=== PATIENT | male | born 1935 | race Hispanic/Latino ===

== ENCOUNTER 2020-01-22 15:43 | Emergency (ER) | payer BC, OTHER ==
[2020-01-22 16:46] LABS: #Eosinphils 0.1 thou/uL (0.0-0.7); #Lymphocytes 1.4 thou/uL (1.20-3.40); #Monocytes 0.8 thou/uL (0.11-0.59); #Neutrophils 10.3 thou/uL (1.40-6.50); %Basophils 0.1 % (0.0-1.0); %Lymphocytes 11.2 % (21.0-51.0); %Monocytes 6.6 % (0.0-10.0); Hemoglobin 13.4 g/dL (14.0-18.0); Mean Corpuscular HGB CONC 34.5 g/dL (32.0-36.0); Mean Corpuscular Hemoglobin 31.7 pg (27.0-31.0); Mean Corpuscular Volume 91.9 fL (78.0-98.0); Mean Platelet Volume 7.4 fL (7.4-10.4); Platelet Count 129 thou/uL (130-400); RBC Distribution Width 12.2 % (11.5-14.5); Red Blood Cell (RBC) Count 4.22 mill/uL (4.70-6.10); White Blood Cell (WBC) Count 12.7 thou/uL (4.8-10.8)
[2020-01-22] MEDS ORDERED: Ondansetron PF 4 MG/2 ML Vial ONE (16:50)
--- NOTE | 2020-01-22 16:58 | RAD ---
XR Chest 1 View Portable History: Chest pain Comparison: None. Findings: Lungs are clear. No pneumothorax. No effusion. Cardiac silhouette and mediastinal contours are within normal limits. No acute osseous abnormality. Impression: No acute intrathoracic abnormality.
[2020-01-22 17:03] LABS: ALT (SGPT) 8 U/L (8-55); AST (SGOT) 16 U/L (5-34); Albumin 4.1 g/dL (3.4-4.8); Alkaline Phosphatase 78 U/L (40-110); Anion Gap 18 mmol/L (10-20); BUN (Urea Nitrogen) 25 mg/dL (8.4-25.7); Bilirubin, Total 0.6 mg/dL (0.2-1.2); Calc. Creatinine Clearance 0 mL/min (70-130); Calcium 9.3 mg/dL (7.8-10.44); Carbon Dioxide 18 mmol/L (23-31); Chloride 109 mmol/L (98-107); Estimated GFR-MDRD 33; Globulin 2.8 g/dL (2.4-3.5); Glucose 127 mg/dL (83-110); Potassium 4.1 mmol/L (3.5-5.1); Protein, Total 6.9 g/dL (5.8-8.1); Sodium 141 mmol/L (136-145)
[2020-01-22 17:59] LABS: Bilirubin Negative (Negative); Blood, Urine Negative (Negative); Clarity Clear (Clear); Glucose, Urine (Dipstick) Normal (Negative); Ketone, Urine 20 mg/dL (Negative); Leukocyte Negative Leu/uL (Negative); Nitrite Negative (Negative); Protein, Urine (Dipstick) 10 mg/dL (Neg-Trace); Specific Gravity, Urine 1.019 (1.002-1.036); Urobilinogen Normal mg/dL (Less than 2); pH, Urine 7.5 (5.0-9.0)
== END 2020-01-22 20:46 | disposition home or self-care (01) ==
LOC: ERS 15:43
DX: R55 Syncope and collapse (principal); T50.991A Poisoning by other drugs, medicaments and biological substances, accidental (unintentional), initial encounter; I95.2 Hypotension due to drugs; I10 Essential (primary) hypertension; F17.220 Nicotine dependence, chewing tobacco, uncomplicated
CPT/HCPCS: 36415; 51701; 71045; 80053; 81003; 82550; 84484; 85025; 93005; 96374; J2405

== ENCOUNTER 2022-07-05 08:48 | Inpatient (IN) | payer MEDICARE, BC ==
[2022-07-05 09:40] LABS: #Eosinphils 0.2 thou/uL (0.0-0.7); #Lymphocytes 1.8 thou/uL (1.20-3.40); #Monocytes 0.5 thou/uL (0.11-0.59); %Basophils 0.1 % (0.0-1.0); %Eosinophils 2.8 % (0.0-10.0); %Lymphocytes 27.4 % (21.0-51.0); %Monocytes 8.1 % (0.0-10.0); %Neutrophils 61.6 % (42.0-75.0); Hemoglobin 12.5 g/dL (14.0-18.0); Mean Corpuscular HGB CONC 33.9 g/dL (32.0-36.0); Mean Corpuscular Hemoglobin 32.1 pg (27.0-31.0); Mean Corpuscular Volume 94.8 fl (78.0-98.0); Mean Platelet Volume 7.3 fL (7.4-10.4); Platelet Count 159 10x3/uL (130-400); RBC Distribution Width 12.3 % (11.5-14.5); Red Blood Cell (RBC) Count 3.88 mill/uL (4.70-6.10); White Blood Cell (WBC) Count 6.5 10x3/uL (4.8-10.8)
[2022-07-05 10:00] LABS: ALT (SGPT) 12 U/L (8-55); AST (SGOT) 15 U/L (5-34); Albumin 4.1 g/dL (3.4-4.8); Alkaline Phosphatase 74 U/L (40-110); Anion Gap 12 mmol/L (10-20); BUN (Urea Nitrogen) 15 mg/dL (8.4-25.7); Bilirubin, Total 0.5 mg/dL (0.2-1.2); Calc. Creatinine Clearance 0 mL/min (70-130); Calcium 9.5 mg/dL (7.8-10.44); Carbon Dioxide 24 mmol/L (23-31); Chloride 108 mmol/L (98-107); Estimated GFR 40; Globulin 2.8 g/dL (2.4-3.5); Glucose 118 mg/dL (83-110); Potassium 4.2 mmol/L (3.5-5.1); Protein, Total 6.9 g/dL (5.8-8.1); Sodium 140 mmol/L (136-145)
[2022-07-05] MEDS ORDERED: Nitroglycerin 0.4 MG TAB (25 Tab Bottle) SL PRN ×2 (10:50→11:35)
[2022-07-05] MEDS ORDERED: Non-Formulary Item 1 EACH (Sildenafil Citrate [Sildenafil Citrate] 100 MG Tablet) PO PRN (11:35)
[2022-07-05 11:39] LABS: Magnesium 1.5 mg/dL (1.6-2.6)
[2022-07-05 13:13] LABS: Troponin I 0.566 ng/mL (< 0.028)
[2022-07-05] MEDS ORDERED: Ondansetron ODT 4 MG TAB PO PRN (13:31)
[2022-07-05] MEDS ORDERED: Acetaminophen 325 MG TAB PO PRN (13:31)
[2022-07-05] MEDS ORDERED: Ondansetron PF 4 MG/2 ML Vial IVP PRN (13:31)
[2022-07-05] MEDS: Magnesium 2 GM/50 ML(in water) 2 GM in Premix Bag 1 BAG IVPB SCH ×2 (14:32→15:36)
[2022-07-05] MEDS: Ipratropium Bromide 0.06% Nasal Inhaler 15ml EA NARE SCH ×2 (14:32→22:03)
[2022-07-05 15:44] LABS: Troponin I 4.914 ng/mL (< 0.028)
[2022-07-05] MEDS ORDERED: Communication Order-Pharmacy FS ONE (20:13)
[2022-07-05] MEDS ORDERED: Lidocaine 2% Viscous Solution 10 ML, Aluminum & Magnesium Hydroxide 30 ML SSW SCH (20:15)
[2022-07-05] MEDS: Atorvastatin Calcium 40 MG TAB PO SCH (20:16)
[2022-07-05] MEDS: Famotidine 20 MG TAB PO SCH (20:16)
[2022-07-05] MEDS: Nitroglycerin 2% Ointment 1 INCH/1 GM Packet TOP SCH (20:36)
[2022-07-05 20:45] LABS: Hemoglobin 11.9 g/dL (14.0-18.0); Platelet Count 160 10x3/uL (130-400)
[2022-07-05] MEDS ORDERED: Atorvastatin Calcium 10 MG TAB PO SCH (21:00)
[2022-07-05] MEDS ORDERED: Communication Order-Pharmacy FS SCH (21:00)
[2022-07-05] MEDS: Sodium Chloride 0.9% 1,000 ML IV SCH (21:47)
[2022-07-05] MEDS ORDERED: Nitroglycerin 2% Ointment 1 INCH/1 GM Packet TOP SCH (22:00)
[2022-07-06 00:33] LABS: ALT (SGPT) 16 U/L (8-55); AST (SGOT) 79 U/L (5-34); Albumin 3.6 g/dL (3.4-4.8); Alkaline Phosphatase 68 U/L (40-110); Anion Gap 11 mmol/L (10-20); BUN (Urea Nitrogen) 18 mg/dL (8.4-25.7); Bilirubin, Total 0.6 mg/dL (0.2-1.2); Calc. Creatinine Clearance 27 mL/min (70-130); Calcium 9.1 mg/dL (7.8-10.44); Carbon Dioxide 25 mmol/L (23-31); Chloride 106 mmol/L (98-107); Estimated GFR 34; Globulin 2.7 g/dL (2.4-3.5); Glucose 115 mg/dL (83-110); Magnesium 2.5 mg/dL (1.6-2.6); Potassium 4.3 mmol/L (3.5-5.1); Protein, Total 6.3 g/dL (5.8-8.1); Sodium 138 mmol/L (136-145)
[2022-07-06 05:42] LABS: #Eosinphils 0.1 thou/uL (0.0-0.7); #Monocytes 0.6 thou/uL (0.11-0.59); #Neutrophils 4.2 thou/uL (1.40-6.50); %Basophils 0.3 % (0.0-1.0); %Eosinophils 2.1 % (0.0-10.0); %Lymphocytes 28.2 % (21.0-51.0); %Monocytes 8.7 % (0.0-10.0); %Neutrophils 60.7 % (42.0-75.0); Hemoglobin 12.1 g/dL (14.0-18.0); Mean Corpuscular HGB CONC 36.1 g/dL (32.0-36.0); Mean Corpuscular Hemoglobin 33.4 pg (27.0-31.0); Mean Corpuscular Volume 92.5 fl (78.0-98.0); Mean Platelet Volume 7.7 fL (7.4-10.4); Platelet Count 141 10x3/uL (130-400); RBC Distribution Width 12.4 % (11.5-14.5); Red Blood Cell (RBC) Count 3.62 mill/uL (4.70-6.10)
[2022-07-06 06:06] LABS: Anion Gap 13 mmol/L (10-20); BUN (Urea Nitrogen) 17 mg/dL (8.4-25.7); Calc. Creatinine Clearance 29 mL/min (70-130); Carbon Dioxide 23 mmol/L (23-31); Cardiac Risk 3.4 (Less than 4.5); Chloride 106 mmol/L (98-107); Cholesterol 150 mg/dl (< 200 Desired); Estimated GFR 37; Glucose 104 mg/dL (83-110); HDL Cholesterol 44 mg/dL (>60 Neg Risk); LDL Cholesterol, Calculated 84 mg/dL; Magnesium 2.3 mg/dL (1.6-2.6); Potassium 4.4 mmol/L (3.5-5.1); Sodium 138 mmol/L (136-145); Triglycerides 112 mg/dL (Less than 150)
[2022-07-06] MEDS: Loratadine 10 MG TAB PO SCH (08:31)
[2022-07-06] MEDS: Nitroglycerin 2% Ointment 1 INCH/1 GM Packet TOP SCH ×2 (08:31→20:56)
[2022-07-06] MEDS: Aspirin Chewable 81 MG TAB PO SCH (08:31)
[2022-07-06] MEDS: Famotidine 20 MG TAB PO SCH ×2 (08:31→20:55)
[2022-07-06] MEDS: Docusate 100 MG CAP PO SCH (08:31)
[2022-07-06] MEDS: Ipratropium Bromide 0.06% Nasal Inhaler 15ml EA NARE SCH ×3 (08:40→21:04)
[2022-07-06] MEDS ORDERED: Hydrochlorothiazide 25 MG TAB PO SCH (09:00)
[2022-07-06] MEDS ORDERED: Metoprolol Tartrate 50 MG TAB PO SCH (09:00)
[2022-07-06] MEDS ORDERED: Lisinopril 20 MG TAB PO SCH ×3 (09:00)
[2022-07-06] MEDS: Sodium Chloride 0.9% 1,000 ML IV SCH (17:46)
[2022-07-06] MEDS: Atorvastatin Calcium 40 MG TAB PO SCH (20:55)
[2022-07-07 04:44] LABS: #Eosinphils 0.2 thou/uL (0.0-0.7); #Lymphocytes 2.4 thou/uL (1.20-3.40); #Monocytes 0.8 thou/uL (0.11-0.59); #Neutrophils 5.1 thou/uL (1.40-6.50); %Basophils 0.2 % (0.0-1.0); %Eosinophils 2.4 % (0.0-10.0); %Lymphocytes 28.4 % (21.0-51.0); %Monocytes 9.1 % (0.0-10.0); %Neutrophils 59.9 % (42.0-75.0); Hemoglobin 12.4 g/dL (14.0-18.0); Mean Corpuscular HGB CONC 33.3 g/dL (32.0-36.0); Mean Corpuscular Hemoglobin 31.2 pg (27.0-31.0); Mean Corpuscular Volume 93.8 fl (78.0-98.0); Mean Platelet Volume 7.5 fL (7.4-10.4); Platelet Count 155 10x3/uL (130-400); RBC Distribution Width 12.3 % (11.5-14.5); Red Blood Cell (RBC) Count 3.96 mill/uL (4.70-6.10); White Blood Cell (WBC) Count 8.5 10x3/uL (4.8-10.8)
[2022-07-07 05:20] LABS: Anion Gap 11 mmol/L (10-20); BUN (Urea Nitrogen) 21 mg/dL (8.4-25.7); Calc. Creatinine Clearance 26 mL/min (70-130); Calcium 9.5 mg/dL (7.8-10.44); Carbon Dioxide 26 mmol/L (23-31); Chloride 107 mmol/L (98-107); Estimated GFR 33; Glucose 97 mg/dL (83-110); Potassium 4.5 mmol/L (3.5-5.1); Sodium 139 mmol/L (136-145)
[2022-07-07] MEDS ORDERED: Sodium Chloride 0.9% 1,000 ML IV SCH ×3 (06:00→16:00)
[2022-07-07] MEDS: Famotidine 20 MG TAB PO SCH (06:12)
[2022-07-07] MEDS: Aspirin Chewable 81 MG TAB PO SCH (06:13)
[2022-07-07] MEDS: Loratadine 10 MG TAB PO SCH (06:13)
[2022-07-07] MEDS ORDERED: Heparin 10,000 UNITS/ 10 ML VIAL ONE (07:03)
[2022-07-07] MEDS ORDERED: Lidocaine 1% (PF) 30 ML VIAL ONE (07:03)
[2022-07-07] MEDS ORDERED: Midazolam HCl 2 mg/2 ml Vial ONE (08:50)
[2022-07-07] MEDS ORDERED: FENTANYL 50 MCG/ML 1 ML VIAL ONE (08:50)
[2022-07-07] MEDS ORDERED: Protamine Sulfate 50 MG/5 ML VIAL ONE (08:55)
[2022-07-07] MEDS ORDERED: Acetaminophen/Codeine 30-300mg Tablet PO PRN ×2 (09:43)
[2022-07-07] MEDS ORDERED: Nitroglycerin 0.4 MG TAB (25 Tab Bottle) SL PRN (09:43)
[2022-07-07] MEDS ORDERED: Sodium Chloride 0.9% 200 ML IV PRN (09:43)
[2022-07-07] MEDS ORDERED: Iopamidol 370 76% 100 ML VIAL ONE (09:57)
[2022-07-07] MEDS: Ipratropium Bromide 0.06% Nasal Inhaler 15ml EA NARE SCH ×2 (12:16→19:59)
[2022-07-07] MEDS: Nitroglycerin 2% Ointment 1 INCH/1 GM Packet TOP SCH ×2 (12:41→21:52)
[2022-07-07] MEDS: Docusate 100 MG CAP PO SCH (14:39)
[2022-07-07] MEDS ORDERED: Communication Order-Pharmacy FS SCH (16:03)
[2022-07-07] MEDS: Atorvastatin Calcium 40 MG TAB PO SCH (21:39)
[2022-07-08 04:47] LABS: #Basophils 0.1 thou/uL (0.0-0.2); #Eosinphils 0.2 thou/uL (0.0-0.7); #Lymphocytes 1.8 thou/uL (1.20-3.40); #Monocytes 0.7 thou/uL (0.11-0.59); #Neutrophils 3.7 thou/uL (1.40-6.50); %Basophils 1.4 % (0.0-1.0); %Eosinophils 2.4 % (0.0-10.0); %Lymphocytes 28.4 % (21.0-51.0); %Monocytes 10.2 % (0.0-10.0); %Neutrophils 57.6 % (42.0-75.0); Hemoglobin 11.9 g/dL (14.0-18.0); Mean Corpuscular HGB CONC 33.6 g/dL (32.0-36.0); Mean Corpuscular Hemoglobin 32.2 pg (27.0-31.0); Mean Corpuscular Volume 95.7 fl (78.0-98.0); Mean Platelet Volume 7.5 fL (7.4-10.4); Platelet Count 154 10x3/uL (130-400); RBC Distribution Width 12.4 % (11.5-14.5); Red Blood Cell (RBC) Count 3.69 mill/uL (4.70-6.10); White Blood Cell (WBC) Count 6.4 10x3/uL (4.8-10.8)
[2022-07-08 05:21] LABS: Anion Gap 12 mmol/L (10-20); BUN (Urea Nitrogen) 17 mg/dL (8.4-25.7); Calc. Creatinine Clearance 31 mL/min (70-130); Calcium 9.1 mg/dL (7.8-10.44); Carbon Dioxide 22 mmol/L (23-31); Chloride 110 mmol/L (98-107); Estimated GFR 40; Glucose 107 mg/dL (83-110); Potassium 4.5 mmol/L (3.5-5.1); Sodium 139 mmol/L (136-145)
[2022-07-08] MEDS ORDERED: Albumin 5% 500 ML ONE ×2 (06:47→12:34)
[2022-07-08] MEDS ORDERED: Levofloxacin 500 mg/D5W 100 ml Premix Bag ONE (08:22)
[2022-07-08] MEDS ORDERED: Clindamycin/D5W 900 mg/50 ml Premix Bag ONE (08:22)
[2022-07-08] MEDS ORDERED: Midazolam HCl 5 mg/5 ml Vial ONE (08:26)
[2022-07-08] MEDS ORDERED: Rocuronium Bromide 50 MG/5 ML VIAL ONE (08:26)
[2022-07-08] MEDS ORDERED: Fentanyl 250 MCG/5 ML VIAL ONE (08:26)
[2022-07-08] MEDS ORDERED: Insulin Regular 300 UNITS/3 ML VIAL ONE (08:26)
[2022-07-08] MEDS ORDERED: SUGAMMADEX SODIUM 200 MG/2 ML VIAL ONE (08:26)
[2022-07-08] MEDS ORDERED: Heparin 10,000 UNITS/1 ML VIAL 30,000 UNITS in Sodium Chloride 0.9% 1,000 ML FS SCH (08:45)
[2022-07-08] MEDS ORDERED: Aminocaproic Acid 5 GM/20 ML VIAL ONE ×2 (08:52→09:37)
[2022-07-08] MEDS ORDERED: Famotidine 20 MG TAB PO SCH (09:00)
[2022-07-08] MEDS ORDERED: Lisinopril 20 MG TAB PO SCH (09:00)
[2022-07-08] MEDS ORDERED: Lidocaine 1% MPF 2 ML VIAL ONE (09:07)
[2022-07-08] MEDS ORDERED: Cardioplegic Soln 1,000 ML BAG ONE (09:37)
[2022-07-08] MEDS ORDERED: Calcium Chloride 1 GM/10 ML Abboject SYRINGE ONE (09:37)
[2022-07-08] MEDS ORDERED: Thrombin 5000 UNITS/5 ML VIAL ONE (09:37)
[2022-07-08] MEDS ORDERED: Phenylephrine 10 MG/ML VIAL ONE (09:37)
[2022-07-08] MEDS ORDERED: Heparin 5,000 UNITS/ML VIAL ONE (09:37)
[2022-07-08] MEDS ORDERED: Papaverine 60 MG/2 ML VIAL ONE (09:37)
[2022-07-08] MEDS ORDERED: PROPOFOL 200 MG/20 ML VIAL ONE (09:37)
[2022-07-08] MEDS ORDERED: Vancomycin 1 GM VIAL ONE (09:37)
[2022-07-08] MEDS ORDERED: ePHEDrine 50 MG/ML VIAL ONE (09:37)
[2022-07-08] MEDS ORDERED: Rocuronium Bromide 10 MG/ML (10ML VIAL) ONE (09:37)
[2022-07-08] MEDS ORDERED: Magnesium 5 GM/10 ML VIAL ONE (09:37)
[2022-07-08] MEDS ORDERED: Potassium Chloride 60 MEQ/30 ML VIAL ONE (09:37)
[2022-07-08] MEDS ORDERED: Mannitol 12.5 GM/50 ML ONE (09:37)
[2022-07-08] MEDS ORDERED: Lidocaine 2% PF 100 mg/5 ml Syringe ONE (09:37)
[2022-07-08] MEDS ORDERED: Lidocaine 1% PF 5 ML VIAL ONE (09:37)
[2022-07-08] MEDS ORDERED: Sodium Bicarb 50 MEQ/50 ML VIAL ONE (09:37)
[2022-07-08] MEDS ORDERED: Protamine Sulfate 250 MG/25 ML VIAL ONE (09:37)
[2022-07-08] MEDS ORDERED: Norepinephrine 4 MG/4 ML VIAL ONE (09:37)
[2022-07-08] MEDS ORDERED: Heparin 30,000 units/30 ml VIAL ONE (09:37)
[2022-07-08] MEDS ORDERED: PHENYLEPHRINE-NS 100 MCG/ML 10 ML SYRINGE ONE (11:19)
[2022-07-08] MEDS ORDERED: Potassium Chloride 20 MEQ/100 ML PREMIX BAG IVPB PRN (13:42)
[2022-07-08] MEDS ORDERED: niCARdipine 25 MG in Sodium Chloride 0.9% 250 ML 250 ML IVPB PRN (13:42)
[2022-07-08] MEDS ORDERED: Nitroglycerin 50 MG/250 ML BOT 250 ML IVPB PRN (13:42)
[2022-07-08] MEDS ORDERED: Mag-Al 1200 mg/1200 mg/30 ML UDCUP PO PRN (13:42)
[2022-07-08] MEDS ORDERED: DOPamine 400 MG/D5W 250 ML 250 ML IVPB PRN (13:42)
[2022-07-08] MEDS ORDERED: Ipratropium/Albuterol 3 ML NEB NEB PRN (13:42)
[2022-07-08] MEDS ORDERED: Hetastarch 6% 500 ML 500 ML IVPB PRN (13:42)
[2022-07-08] MEDS ORDERED: hydrALAZINE 20 MG/ML VIAL SLOW IVP PRN (13:42)
[2022-07-08] MEDS ORDERED: Bisacodyl 10 MG SUPP PR PRN (13:42)
[2022-07-08] MEDS ORDERED: Post-Op Insulin Drip Protocol IVPB ONE (13:42)
[2022-07-08] MEDS ORDERED: NOREPINEPHRINE 8 MG/250 ML-D5W 250 ML IVPB PRN (13:42)
[2022-07-08] MEDS ORDERED: Dextrose 5% in Water 1,000 ML IV PRN (14:00)
[2022-07-08] MEDS ORDERED: Dextrose 50% Abboject 50 ML SYRINGE SLOW IVP PRN (14:00)
[2022-07-08] MEDS ORDERED: HUMULIN R 100 UNITS in Sodium Chloride 0.9% 100 ML IVPB SCH (14:00)
[2022-07-08 14:22] LABS: INR-International Normal Ratio 1.5; Prothrombin Time 19.1 sec (12.0-14.7)
[2022-07-08] MEDS: Morphine 2 MG/ML VIAL SLOW IVP PRN ×2 (14:22→14:59)
[2022-07-08 14:23] LABS: PTT 33.9 sec (22.9-36.1)
[2022-07-08] MEDS: Insulin Regular 300 UNITS/3 ML VIAL SC PRN ×3 (14:23→20:09)
[2022-07-08 14:26] LABS: Actual Bicarbonate (HCO3a) 20.2 mEq/L (22-28); Base Excess (BEa) -3.4 mEq/L (-2.0 to +3.0); CO2 Tension 31.7 mmHg (35.0-45.0); Calcium, Ionized (arterial) 1.05 mmol/L (1.12-1.30); Carboxyhemoglobin (COHb) 0.4 gm% (0.0-3.0); Hemoglobin (Hb) 11.8 g/dL (14.0-18.0); O2 Tension (PaO2), arterial 106.7 mmHg (> 60.0); Potassium - ABG Lab 4.58 mmol/L (3.70-5.30); pH, Arterial 7.42 (7.35-7.45)
[2022-07-08 14:32] LABS: #Eosinphils 0.1 thou/uL (0.0-0.7); #Lymphocytes 0.8 thou/uL (1.20-3.40); #Monocytes 0.5 thou/uL (0.11-0.59); #Neutrophils 5.7 thou/uL (1.40-6.50); %Eosinophils 1.4 % (0.0-10.0); %Lymphocytes 10.7 % (21.0-51.0); %Monocytes 6.6 % (0.0-10.0); %Neutrophils 81.2 % (42.0-75.0); Hemoglobin 11.6 g/dL (14.0-18.0); Mean Corpuscular HGB CONC 34.6 g/dL (32.0-36.0); Mean Corpuscular Hemoglobin 32.3 pg (27.0-31.0); Mean Corpuscular Volume 93.1 fl (78.0-98.0); Mean Platelet Volume 7.8 fL (7.4-10.4); Platelet Count 65 10x3/uL (130-400); RBC Distribution Width 12.1 % (11.5-14.5); Red Blood Cell (RBC) Count 3.59 mill/uL (4.70-6.10)
[2022-07-08 14:32] LABS: Puncture Site Arterial Line
[2022-07-08 14:33] LABS: ALV-art Gradient 210.175 mmHg (0-20)
[2022-07-08 14:48] LABS: Anion Gap 12 mmol/L (10-20); BUN (Urea Nitrogen) 15 mg/dL (8.4-25.7); Calc. Creatinine Clearance 40 mL/min (70-130); Calcium 7.6 mg/dL (7.8-10.44); Carbon Dioxide 20 mmol/L (23-31); Chloride 113 mmol/L (98-107); Estimated GFR 52; Glucose 132 mg/dL (83-110); Potassium 4.8 mmol/L (3.5-5.1); Sodium 140 mmol/L (136-145)
[2022-07-08] MEDS: Lactated Ringer's 1,000 ML IV SCH (14:48)
[2022-07-08] MEDS: Clindamycin/D5W 900 MG in Premix Bag 1 BAG IVPB SCH (16:54)
[2022-07-08] MEDS: Famotidine/PF 20 mg/2ml Vial SLOW IVP SCH (20:02)
[2022-07-08 20:31] LABS: Actual Bicarbonate (HCO3a) 20.4 mEq/L (22-28); Base Excess (BEa) -3.5 mEq/L (-2.0 to +3.0); Calcium, Ionized (arterial) 1.04 mmol/L (1.12-1.30); Carboxyhemoglobin (COHb) 1.1 gm% (0.0-3.0); Hemoglobin (Hb) 10.9 g/dL (14.0-18.0); O2 Tension (PaO2), arterial 111.6 mmHg (> 60.0); Potassium - ABG Lab 4.43 mmol/L (3.70-5.30); pH, Arterial 7.41 (7.35-7.45)
[2022-07-08 20:33] LABS: Puncture Site ART LINE
[2022-07-08] MEDS: FENTANYL 50 MCG/ML 1 ML VIAL SLOW IVP PRN ×2 (20:49→22:43)
[2022-07-08 21:04] LABS: Hemoglobin 10.5 g/dL (14.0-18.0)
[2022-07-08] MEDS: Ondansetron PF 4 MG/2 ML Vial IVP PRN (21:18)
[2022-07-08 21:22] LABS: Potassium 4.4 mmol/L (3.5-5.1)
[2022-07-09] MEDS: Lactated Ringer's 1,000 ML IV SCH ×4 (00:30→23:49)
[2022-07-09] MEDS: Clindamycin/D5W 900 MG in Premix Bag 1 BAG IVPB SCH ×2 (00:33→08:16)
[2022-07-09] MEDS: FENTANYL 50 MCG/ML 1 ML VIAL SLOW IVP PRN ×6 (00:33→20:28)
[2022-07-09] MEDS: Insulin Regular 300 UNITS/3 ML VIAL SC PRN ×3 (00:58→12:38)
[2022-07-09] MEDS: Ondansetron PF 4 MG/2 ML Vial IVP PRN (03:16)
[2022-07-09 05:21] LABS: #Lymphocytes 0.6 thou/uL (1.20-3.40); #Monocytes 0.8 thou/uL (0.11-0.59); #Neutrophils 6.9 thou/uL (1.40-6.50); %Eosinophils 0.1 % (0.0-10.0); %Lymphocytes 7.6 % (21.0-51.0); %Monocytes 9.4 % (0.0-10.0); %Neutrophils 82.8 % (42.0-75.0); Hemoglobin 10.4 g/dL (14.0-18.0); Mean Corpuscular HGB CONC 33.5 g/dL (32.0-36.0); Mean Corpuscular Hemoglobin 31.9 pg (27.0-31.0); Mean Corpuscular Volume 95.1 fl (78.0-98.0); Mean Platelet Volume 7.9 fL (7.4-10.4); Platelet Count 95 10x3/uL (130-400); RBC Distribution Width 12.3 % (11.5-14.5); Red Blood Cell (RBC) Count 3.25 mill/uL (4.70-6.10); White Blood Cell (WBC) Count 8.4 10x3/uL (4.8-10.8)
[2022-07-09 05:25] LABS: Anion Gap 11 mmol/L (10-20); BUN (Urea Nitrogen) 21 mg/dL (8.4-25.7); Calc. Creatinine Clearance 34 mL/min (70-130); Calcium 8.1 mg/dL (7.8-10.44); Carbon Dioxide 23 mmol/L (23-31); Chloride 112 mmol/L (98-107); Estimated GFR 43; Glucose 139 mg/dL (83-110); Potassium 4.4 mmol/L (3.5-5.1); Sodium 142 mmol/L (136-145)
[2022-07-09] MEDS: Aspirin Chewable 81 MG TAB PO SCH (08:15)
[2022-07-09] MEDS: Magnesium 2 GM/50 ML(in water) 2 GM in Premix Bag 1 BAG IVPB SCH (08:16)
[2022-07-09] MEDS: Polyethylene Glycol 3350 17 GM Packet PO SCH (08:16)
[2022-07-09] MEDS: traMADol HCl 50 MG TAB PO PRN ×2 (11:19→17:19)
[2022-07-09] MEDS ORDERED: Insulin Glargine 30 UNITS/0.3 ML VIAL SC PRN (14:00)
[2022-07-09] MEDS: Acetaminophen 325 MG TAB PO PRN ×2 (14:08→19:48)
[2022-07-09] MEDS ORDERED: Simethicone Chewable 80 MG TAB PO SCH (15:00)
[2022-07-09 15:10] LABS: Actual Bicarbonate (HCO3a) 18.9 mEq/L (22-28); Analyzer IN Cardio OR; Base Excess (BEa) -5.4 mEq/L (-2.0 to +3.0); CO2 Tension 32.9 mmHg (35.0-45.0); Calcium, Ionized (arterial) 1.14 mmol/L (1.12-1.30); Carboxyhemoglobin (COHb) 0.3 gm% (0.0-3.0); Hemoglobin (Hb) 11.6 g/dL (14.0-18.0); O2 Tension (PaO2), arterial 423.3 mmHg (> 60.0); Potassium - ABG Lab 4.08 mmol/L (3.70-5.30); pH, Arterial 7.38 (7.35-7.45)
[2022-07-09 15:10] LABS: Analyzer IN Cardio OR; Base Excess (BEa) -4.9 mEq/L (-2.0 to +3.0); CO2 Tension 36.7 mmHg (35.0-45.0); Calcium, Ionized (arterial) 1.08 mmol/L (1.12-1.30); Carboxyhemoglobin (COHb) 0.2 gm% (0.0-3.0); Hemoglobin (Hb) 10.4 g/dL (14.0-18.0); O2 Tension (PaO2), arterial 490.3 mmHg (> 60.0); Potassium - ABG Lab 4.17 mmol/L (3.70-5.30); pH, Arterial 7.36 (7.35-7.45)
[2022-07-09 15:11] LABS: Actual Bicarbonate (HCO3a) 19.6 mEq/L (22-28); Analyzer IN Cardio OR; Base Excess (BEa) -3.3 mEq/L (-2.0 to +3.0); CO2 Tension 26.6 mmHg (35.0-45.0); Calcium, Ionized (arterial) 0.98 mmol/L (1.12-1.30); Carboxyhemoglobin (COHb) 0.4 gm% (0.0-3.0); Hemoglobin (Hb) 7.4 g/dL (14.0-18.0); O2 Tension (PaO2), arterial 511.5 mmHg (> 60.0); pH, Arterial 7.49 (7.35-7.45)
[2022-07-09 15:11] LABS: Actual Bicarbonate (HCO3a) 24.8 mEq/L (22-28); Analyzer IN Cardio OR; Base Excess (BEa) 0.7 mEq/L (-2.0 to +3.0); CO2 Tension 36.8 mmHg (35.0-45.0); Calcium, Ionized (arterial) 0.96 mmol/L (1.12-1.30); Carboxyhemoglobin (COHb) 0.6 gm% (0.0-3.0); Hemoglobin (Hb) 6.9 g/dL (14.0-18.0); O2 Tension (PaO2), arterial 428.2 mmHg (> 60.0); Potassium - ABG Lab 5.48 mmol/L (3.70-5.30); pH, Arterial 7.45 (7.35-7.45)
[2022-07-09 15:11] LABS: Actual Bicarbonate (HCO3a) 21.9 mEq/L (22-28); Analyzer IN Cardio OR; Base Excess (BEa) -2.6 mEq/L (-2.0 to +3.0); CO2 Tension 36.7 mmHg (35.0-45.0); Calcium, Ionized (arterial) 0.98 mmol/L (1.12-1.30); Carboxyhemoglobin (COHb) 0.3 gm% (0.0-3.0); Hemoglobin (Hb) 9.1 g/dL (14.0-18.0); O2 Tension (PaO2), arterial 413.4 mmHg (> 60.0); Potassium - ABG Lab 5.74 mmol/L (3.70-5.30); pH, Arterial 7.39 (7.35-7.45)
[2022-07-09 15:11] LABS: Actual Bicarbonate (HCO3a) 19.5 mEq/L (22-28); Analyzer IN Cardio OR; Base Excess (BEa) -3.8 mEq/L (-2.0 to +3.0); CO2 Tension 29.6 mmHg (35.0-45.0); Calcium, Ionized (arterial) 1.02 mmol/L (1.12-1.30); Carboxyhemoglobin (COHb) 0.3 gm% (0.0-3.0); Hemoglobin (Hb) 10.5 g/dL (14.0-18.0); O2 Tension (PaO2), arterial 480.9 mmHg (> 60.0); Potassium - ABG Lab 4.96 mmol/L (3.70-5.30); pH, Arterial 7.44 (7.35-7.45)
[2022-07-09 15:12] LABS: Puncture Site Arterial Line
[2022-07-09 15:12] LABS: Puncture Site Arterial Line
[2022-07-09 15:13] LABS: Puncture Site Arterial Line
[2022-07-09 15:13] LABS: Puncture Site Arterial Line
[2022-07-09 15:13] LABS: Puncture Site Arterial Line
[2022-07-09 15:14] LABS: Puncture Site Arterial Line
[2022-07-09] MEDS: Famotidine/PF 20 mg/2ml Vial SLOW IVP SCH (20:29)
[2022-07-09] MEDS: Atorvastatin Calcium 40 MG TAB PO SCH (20:29)
[2022-07-09] MEDS: Simethicone Chewable 80 MG TAB PO PRN (23:48)
[2022-07-10] MEDS: Dicyclomine 10 MG CAP PO PRN ×3 (02:03→20:56)
[2022-07-10] MEDS: Acetaminophen 325 MG TAB PO PRN (02:06)
[2022-07-10 04:37] LABS: #Eosinphils 0.1 thou/uL (0.0-0.7); #Monocytes 0.9 thou/uL (0.11-0.59); #Neutrophils 6.7 thou/uL (1.40-6.50); %Basophils 0.1 % (0.0-1.0); %Eosinophils 0.8 % (0.0-10.0); %Monocytes 10.9 % (0.0-10.0); %Neutrophils 77.3 % (42.0-75.0); Hemoglobin 9.1 g/dL (14.0-18.0); Mean Corpuscular HGB CONC 33.9 g/dL (32.0-36.0); Mean Corpuscular Hemoglobin 32.2 pg (27.0-31.0); Mean Corpuscular Volume 94.9 fl (78.0-98.0); Mean Platelet Volume 7.8 fL (7.4-10.4); Platelet Count 84 10x3/uL (130-400); RBC Distribution Width 12.7 % (11.5-14.5); Red Blood Cell (RBC) Count 2.82 mill/uL (4.70-6.10); White Blood Cell (WBC) Count 8.7 10x3/uL (4.8-10.8)
[2022-07-10 04:54] LABS: Anion Gap 9 mmol/L (10-20); BUN (Urea Nitrogen) 19 mg/dL (8.4-25.7); Calc. Creatinine Clearance 36 mL/min (70-130); Calcium 8.2 mg/dL (7.8-10.44); Carbon Dioxide 24 mmol/L (23-31); Chloride 109 mmol/L (98-107); Estimated GFR 44; Glucose 116 mg/dL (83-110); Potassium 4.1 mmol/L (3.5-5.1); Sodium 138 mmol/L (136-145)
[2022-07-10] MEDS: traMADol HCl 50 MG TAB PO PRN ×2 (06:28→18:08)
[2022-07-10] MEDS: Lactated Ringer's 1,000 ML IV SCH ×2 (06:31→18:39)
[2022-07-10] MEDS ORDERED: Fleet Enema 133 ML BOT PR SCH (08:30)
[2022-07-10] MEDS: Polyethylene Glycol 3350 17 GM Packet PO SCH (08:35)
[2022-07-10] MEDS: Aspirin Chewable 81 MG TAB PO SCH (08:35)
[2022-07-10] MEDS: Magnesium 2 GM/50 ML(in water) 2 GM in Premix Bag 1 BAG IVPB SCH (08:36)
[2022-07-10] MEDS: Simethicone Chewable 80 MG TAB PO PRN ×2 (08:36→22:36)
[2022-07-10] MEDS: Bisacodyl 10 MG SUPP PR SCH (09:08)
[2022-07-10] MEDS: Bisacodyl 5 MG TAB PO PRN (18:08)
[2022-07-10] MEDS: Atorvastatin Calcium 40 MG TAB PO SCH (20:55)
[2022-07-10] MEDS: Famotidine/PF 20 mg/2ml Vial SLOW IVP SCH (20:55)
[2022-07-11] MEDS: traMADol HCl 50 MG TAB PO PRN (00:14)
[2022-07-11] MEDS: Lactated Ringer's 1,000 ML IV SCH ×3 (02:08→23:18)
[2022-07-11] MEDS: Dicyclomine 10 MG CAP PO PRN (04:17)
[2022-07-11 04:39] LABS: #Lymphocytes 0.9 thou/uL (1.20-3.40); #Monocytes 0.9 thou/uL (0.11-0.59); %Basophils 0.1 % (0.0-1.0); %Eosinophils 0.4 % (0.0-10.0); %Lymphocytes 8.6 % (21.0-51.0); %Monocytes 9.4 % (0.0-10.0); %Neutrophils 81.4 % (42.0-75.0); Hemoglobin 9.5 g/dL (14.0-18.0); Mean Corpuscular HGB CONC 34.2 g/dL (32.0-36.0); Mean Corpuscular Hemoglobin 32.5 pg (27.0-31.0); Mean Corpuscular Volume 95.2 fl (78.0-98.0); Mean Platelet Volume 7.8 fL (7.4-10.4); Platelet Count 105 10x3/uL (130-400); RBC Distribution Width 12.6 % (11.5-14.5); Red Blood Cell (RBC) Count 2.91 mill/uL (4.70-6.10); White Blood Cell (WBC) Count 9.9 10x3/uL (4.8-10.8)
[2022-07-11 04:58] LABS: Anion Gap 12 mmol/L (10-20); BUN (Urea Nitrogen) 17 mg/dL (8.4-25.7); Calc. Creatinine Clearance 42 mL/min (70-130); Calcium 8.3 mg/dL (7.8-10.44); Carbon Dioxide 23 mmol/L (23-31); Chloride 106 mmol/L (98-107); Estimated GFR 53; Glucose 118 mg/dL (83-110); Potassium 3.8 mmol/L (3.5-5.1); Sodium 137 mmol/L (136-145)
[2022-07-11] MEDS ORDERED: Fleet Enema 133 ML BOT PR SCH (07:00)
[2022-07-11] MEDS: Polyethylene Glycol 3350 17 GM Packet PO SCH (07:33)
[2022-07-11] MEDS: Bisacodyl 5 MG TAB PO PRN (07:34)
[2022-07-11] MEDS: Aspirin Chewable 81 MG TAB PO SCH (07:35)
[2022-07-11] MEDS: Bisacodyl 10 MG SUPP PR SCH (07:35)
[2022-07-11] MEDS: Acetaminophen 325 MG TAB PO PRN (07:39)
[2022-07-11] MEDS: Atorvastatin Calcium 40 MG TAB PO SCH (20:11)
[2022-07-11] MEDS: Famotidine 20 MG TAB PO SCH (20:11)
[2022-07-11] MEDS: Metoprolol Tartrate 25 MG TAB PO SCH (20:12)
[2022-07-11] MEDS: Senokot S 8.6-50 MG TAB PO SCH (20:12)
[2022-07-12] MEDS ORDERED: Nitroglycerin 0.4 MG TAB (25 Tab Bottle) SL PRN (00:21)
[2022-07-12] MEDS ORDERED: Furosemide 20 MG TAB PO SCH (00:21)
[2022-07-12] MEDS: Acetaminophen 325 MG TAB PO PRN (01:41)
[2022-07-12] MEDS ORDERED: Morphine 2 MG/ML VIAL SLOW IVP PRN ×2 (04:18→09:49)
[2022-07-12] MEDS: Guaifenesin DM 100-10/5 ML UDCUP PO PRN (06:30)
[2022-07-12 08:14] LABS: #Eosinphils 0.2 thou/uL (0.0-0.7); #Lymphocytes 1.2 thou/uL (1.20-3.40); #Neutrophils 7.2 thou/uL (1.40-6.50); %Basophils 0.1 % (0.0-1.0); %Eosinophils 1.8 % (0.0-10.0); %Lymphocytes 12.4 % (21.0-51.0); %Monocytes 10.5 % (0.0-10.0); %Neutrophils 75.2 % (42.0-75.0); Hemoglobin 9.3 g/dL (14.0-18.0); Mean Corpuscular HGB CONC 33.7 g/dL (32.0-36.0); Mean Corpuscular Hemoglobin 32.2 pg (27.0-31.0); Mean Corpuscular Volume 95.5 fl (78.0-98.0); Mean Platelet Volume 7.8 fL (7.4-10.4); Platelet Count 148 10x3/uL (130-400); RBC Distribution Width 12.5 % (11.5-14.5); Red Blood Cell (RBC) Count 2.88 mill/uL (4.70-6.10); White Blood Cell (WBC) Count 9.5 10x3/uL (4.8-10.8)
[2022-07-12 08:23] LABS: Anion Gap 12 mmol/L (10-20); BUN (Urea Nitrogen) 20 mg/dL (8.4-25.7); Calc. Creatinine Clearance 36 mL/min (70-130); Calcium 8.7 mg/dL (7.8-10.44); Carbon Dioxide 24 mmol/L (23-31); Chloride 106 mmol/L (98-107); Estimated GFR 43; Glucose 119 mg/dL (83-110); Potassium 3.8 mmol/L (3.5-5.1); Sodium 138 mmol/L (136-145)
[2022-07-12] MEDS: Metoprolol Tartrate 25 MG TAB PO SCH ×2 (09:16→21:28)
[2022-07-12] MEDS: traMADol HCl 50 MG TAB PO PRN ×2 (09:16→21:26)
[2022-07-12] MEDS: Aspirin Chewable 81 MG TAB PO SCH (09:16)
[2022-07-12] MEDS: Potassium Chloride 10 MEQ TAB PO SCH (09:16)
[2022-07-12] MEDS: Senokot S 8.6-50 MG TAB PO SCH ×2 (09:16→21:26)
[2022-07-12] MEDS: Bisacodyl 10 MG SUPP PR SCH (09:16)
[2022-07-12] MEDS: Polyethylene Glycol 3350 17 GM Packet PO SCH (09:17)
[2022-07-12] MEDS: Furosemide 20 MG TAB PO SCH ×2 (09:17→13:31)
[2022-07-12] MEDS: Amiodarone 450 MG, Admixture Fee 1 EACH in Dextrose 5% in Water 250 ML IVPB SCH ×2 (11:14→21:28)
[2022-07-12] MEDS: Atorvastatin Calcium 40 MG TAB PO SCH (21:26)
[2022-07-12] MEDS: Famotidine 20 MG TAB PO SCH (21:26)
[2022-07-13] MEDS: Aspirin Chewable 81 MG TAB PO SCH (08:28)
[2022-07-13] MEDS: Metoprolol Tartrate 25 MG TAB PO SCH (08:28)
[2022-07-13] MEDS: Senokot S 8.6-50 MG TAB PO SCH ×2 (08:28→20:52)
[2022-07-13] MEDS: Furosemide 20 MG TAB PO SCH (08:28)
[2022-07-13] MEDS: Potassium Chloride 10 MEQ TAB PO SCH (08:28)
[2022-07-13] MEDS: Polyethylene Glycol 3350 17 GM Packet PO SCH (08:28)
[2022-07-13] MEDS: Bisacodyl 10 MG SUPP PR SCH (08:29)
[2022-07-13] MEDS: traMADol HCl 50 MG TAB PO PRN ×2 (08:33→20:51)
[2022-07-13] MEDS: Amiodarone 450 MG, Admixture Fee 1 EACH in Dextrose 5% in Water 250 ML IVPB SCH (12:11)
[2022-07-13] MEDS: Atorvastatin Calcium 40 MG TAB PO SCH (20:52)
[2022-07-13] MEDS: Famotidine 20 MG TAB PO SCH (20:52)
[2022-07-13] MEDS: Metoprolol Tartrate 50 MG TAB PO SCH (20:52)
[2022-07-14 05:19] LABS: Anion Gap 13 mmol/L (10-20); BUN (Urea Nitrogen) 30 mg/dL (8.4-25.7); Calc. Creatinine Clearance 30 mL/min (70-130); Carbon Dioxide 25 mmol/L (23-31); Chloride 104 mmol/L (98-107); Estimated GFR 36; Glucose 115 mg/dL (83-110); Magnesium 1.8 mg/dL (1.6-2.6); Potassium 4.3 mmol/L (3.5-5.1); Sodium 138 mmol/L (136-145)
[2022-07-14] MEDS ORDERED: Furosemide 20 MG TAB PO SCH (09:00)
[2022-07-14] MEDS: Senokot S 8.6-50 MG TAB PO SCH ×2 (10:07→21:51)
[2022-07-14] MEDS: Polyethylene Glycol 3350 17 GM Packet PO SCH (10:07)
[2022-07-14] MEDS: Metoprolol Tartrate 50 MG TAB PO SCH ×2 (10:08→21:51)
[2022-07-14] MEDS: Bisacodyl 10 MG SUPP PR SCH (10:08)
[2022-07-14] MEDS: Aspirin Chewable 81 MG TAB PO SCH (10:08)
[2022-07-14] MEDS: traMADol HCl 50 MG TAB PO PRN (11:06)
[2022-07-14] MEDS: Amiodarone 450 MG, Admixture Fee 1 EACH in Dextrose 5% in Water 250 ML IVPB SCH (11:11)
[2022-07-14] MEDS ORDERED: traMADol HCl 50 MG TAB PO PRN (12:15)
[2022-07-14] MEDS: Guaifenesin DM 100-10/5 ML UDCUP PO PRN ×2 (14:18→21:56)
[2022-07-14] MEDS: Acetaminophen 325 MG TAB PO PRN ×2 (14:33→21:53)
[2022-07-14] MEDS ORDERED: Amiodarone 200 MG TAB PO SCH ×2 (15:30→15:45)
[2022-07-14 16:16] VITALS: BMI 26.2
[2022-07-14] MEDS: Atorvastatin Calcium 40 MG TAB PO SCH (21:52)
[2022-07-14] MEDS: Famotidine 20 MG TAB PO SCH (21:52)
[2022-07-15 04:55] LABS: #Eosinphils 0.2 thou/uL (0.0-0.7); #Lymphocytes 1.6 thou/uL (1.20-3.40); #Monocytes 0.8 thou/uL (0.11-0.59); #Neutrophils 4.2 thou/uL (1.40-6.50); %Basophils 0.4 % (0.0-1.0); %Eosinophils 3.2 % (0.0-10.0); %Monocytes 11.8 % (0.0-10.0); %Neutrophils 61.6 % (42.0-75.0); Hemoglobin 9.4 g/dL (14.0-18.0); Mean Corpuscular HGB CONC 33.1 g/dL (32.0-36.0); Mean Corpuscular Hemoglobin 31.8 pg (27.0-31.0); Mean Corpuscular Volume 96.1 fl (78.0-98.0); Mean Platelet Volume 7.1 fL (7.4-10.4); Platelet Count 226 10x3/uL (130-400); RBC Distribution Width 12.6 % (11.5-14.5); Red Blood Cell (RBC) Count 2.95 mill/uL (4.70-6.10); White Blood Cell (WBC) Count 6.8 10x3/uL (4.8-10.8)
[2022-07-15 05:04] LABS: Anion Gap 11 mmol/L (10-20); BUN (Urea Nitrogen) 28 mg/dL (8.4-25.7); Calc. Creatinine Clearance 33 mL/min (70-130); Calcium 8.8 mg/dL (7.8-10.44); Carbon Dioxide 26 mmol/L (23-31); Chloride 105 mmol/L (98-107); Estimated GFR 41; Glucose 108 mg/dL (83-110); Potassium 3.7 mmol/L (3.5-5.1); Sodium 138 mmol/L (136-145)
[2022-07-15] MEDS ORDERED: Amiodarone 200 MG TAB PO SCH (09:00)
[2022-07-15] MEDS: Metoprolol Tartrate 50 MG TAB PO SCH (09:11)
[2022-07-15] MEDS: Aspirin Chewable 81 MG TAB PO SCH (09:11)
[2022-07-15] MEDS: Senokot S 8.6-50 MG TAB PO SCH (09:11)
[2022-07-15] MEDS: Bisacodyl 10 MG SUPP PR SCH (09:12)
[2022-07-15] MEDS: Polyethylene Glycol 3350 17 GM Packet PO SCH (09:12)
[2022-07-15] MEDS: Acetaminophen 325 MG TAB PO PRN (09:23)
[2022-07-15] MEDS: Guaifenesin DM 100-10/5 ML UDCUP PO PRN (09:24)
[2022-07-15 14:47] VITALS: BP 134/58; TEMP 98.4
[2022-07-25] MEDS ORDERED: Amiodarone 200 MG TAB PO SCH (09:00)
[2022-08-08] MEDS ORDERED: Amiodarone 200 MG TAB PO SCH (09:00)
== END 2022-07-15 14:55 | DRG 233 ==
LOC: ERS 08:48 → ERHOLD 10:47 → CCU 12:23 → 2SW 12:32 → OBSVTOIN 17:39 → CCU 07-08 08:12 → 2NO 07-11 22:00
PROVIDERS: ADMIT Internal Medicine; ATTEND Internal Medicine
PROC: 4A023N7 Measurement of Cardiac Sampling and Pressure, Left Heart, Percutaneous Approach (ICD-10-PCS; 2022-07-07)
PROC: B2151ZZ Fluoroscopy of Left Heart using Low Osmolar Contrast (ICD-10-PCS; 2022-07-07)
PROC: B2111ZZ Fluoroscopy of Multiple Coronary Arteries using Low Osmolar Contrast (ICD-10-PCS; 2022-07-07)
PROC: 02100Z9 Bypass Coronary Artery, One Artery from Left Internal Mammary, Open Approach (ICD-10-PCS; principal; 2022-07-08)
PROC: 021209W Bypass Coronary Artery, Three Arteries from Aorta with Autologous Venous Tissue, Open Approach (ICD-10-PCS; 2022-07-08)
PROC: 06BQ3ZZ Excision of Left Saphenous Vein, Percutaneous Approach (ICD-10-PCS; 2022-07-08)
PROC: 06BP3ZZ Excision of Right Saphenous Vein, Percutaneous Approach (ICD-10-PCS; 2022-07-08)
PROC: 30233N1 Transfusion of Nonautologous Red Blood Cells into Peripheral Vein, Percutaneous Approach (ICD-10-PCS; 2022-07-08)
PROC: 5A1221Z Performance of Cardiac Output, Continuous (ICD-10-PCS; 2022-07-08)
PROC: 02L70CK Occlusion of Left Atrial Appendage with Extraluminal Device, Open Approach (ICD-10-PCS; 2022-07-08)
DX: I21.4 Non-ST elevation (NSTEMI) myocardial infarction (principal); J96.01 Acute respiratory failure with hypoxia; K56.7 Ileus, unspecified; I97.190 Other postprocedural cardiac functional disturbances following cardiac surgery; I25.118 Atherosclerotic heart disease of native coronary artery with other forms of angina pectoris; I12.9 Hypertensive chronic kidney disease with stage 1 through stage 4 chronic kidney disease, or unspecified chronic kidney disease; N40.0 Benign prostatic hyperplasia without lower urinary tract symptoms; K21.9 Gastro-esophageal reflux disease without esophagitis; G43.909 Migraine, unspecified, not intractable, without status migrainosus; F17.220 Nicotine dependence, chewing tobacco, uncomplicated; N18.32 Chronic kidney disease, stage 3b; D63.1 Anemia in chronic kidney disease; E78.00 Pure hypercholesterolemia, unspecified; N40.1 Benign prostatic hyperplasia with lower urinary tract symptoms; R33.8 Other retention of urine; E78.5 Hyperlipidemia, unspecified; N39.498 Other specified urinary incontinence; R39.15 Urgency of urination; R35.0 Frequency of micturition; K59.09 Other constipation; Y83.8 Other surgical procedures as the cause of abnormal reaction of the patient, or of later complication, without mention of misadventure at the time of the procedure; I48.91 Unspecified atrial fibrillation; Z95.5 Presence of coronary angioplasty implant and graft; Z88.0 Allergy status to penicillin; Z91.041 Radiographic dye allergy status; Z79.899 Other long term (current) drug therapy; Z78.1 Physical restraint status; Z79.82 Long term (current) use of aspirin; Z98.890 Other specified postprocedural states; Z83.6 Family history of other diseases of the respiratory system; Z80.41 Family history of malignant neoplasm of ovary; Z98.42 Cataract extraction status, left eye; Z98.41 Cataract extraction status, right eye; Z85.46 Personal history of malignant neoplasm of prostate; Z91.013 Allergy to seafood; Z79.4 Long term (current) use of insulin
CPT/HCPCS: 36415; 36416; 36430; 71045; 74018; 80048; 80053; 80061; 82805; 83735; 83880; 84443; 84484; 85025; 85347; 85520; 85610; 85730; 86850; 86900; 86901; 93005; 93010; 93306; 93458; 93798; 94002; 94150; 94760; 96372; 96374; 96376; 99152; 99153; C1751; C1769; C1776; G0378; J0282; J1265; J1642; J1644; J1650; J1815; J1956; J2001; J2150; J2250; J2272; J2370; J2405; J2440; J2704; J2720; J3010; J3370; J3475; J3480; J3490; J7030; J7050; J7070; J7120; P9016; P9045; Q9967; S0017; S0028